=== PATIENT | female | born 1995 | race Caucasian/White ===

== ENCOUNTER 2016-08-03 17:58 | Emergency (ER) | payer OTHER ==
[~2016-08-03] VITALS: Ht 167.6 cm; Wt 95.5 kg
[2016-08-03 18:05] VITALS: BP 137/97; PULSE 92; TEMP 98.2
[2016-08-03] MEDS ORDERED: GEODON 40MG40 MG PO (18:10)
[2016-08-03] MEDS ORDERED: KLONOPIN 0.5MG0.5 MG PO (18:10)
== END 2016-08-03 20:39 | disposition home or self-care (01) ==
LOC: COL.ER 17:58
DX: R45.851 Suicidal ideations (principal); F31.9 Bipolar disorder, unspecified